=== PATIENT | female | born 1955 | race Caucasian/White ===

== ENCOUNTER 2021-02-22 05:21 | Outpatient (CLI) | payer BC, SELFPAY ==
[2021-02-22 06:21] VITALS: BP 126/87; PULSE 84; RESP 18; TEMP 36.6; O2SAT 93
[2021-02-22 06:28] VITALS: BMI 35.4
--- NOTE | 2021-02-22 06:31 | AMB.MCA ---
Patient Information COVID 19 common symptoms: positive fever(s), chills, cough, non-productive cough, dyspnea, fatigue, body aches, headache(s), nasal congestion and nausea COVID 19 other sytmptoms: negative requiring oxygen Severity: mild Treatment prior to arrival: none Other details: 65-year-old female had a positive Covid test at an outside facility. She is within the last 10 days. We reviewed risk benefits alternatives patient wishes to proceed consent signed [facility] COVID test results: No Data to Display Criteria/Plan Inclusion/Exclusion Criteria weight >/= 40kg, + direct test </= 10 days ago and symptom onset </= 10 days ago age >/= 65 and BMI >/= 35 not requiring hospitalization, not requiring oxygen (if not chronically on oxygen) and no increase oxygen requirement (if chronically on oxygen) Patient education patient/family/caregiver received/reviewed fact sheet, Emergency Use Authorization/unapproved drug status discussed with patient/family/caregiver, alternatives to this treatment discussed with patient/family/caregiver, risks and benefits of medication reviewed with patient/family/caregiver, patient/family/caregiver given opportunity for questions, which were answered and patient consents to receiving Monoclonal Antibody Treatment Related diagnosis (1) COVID-19: Plan for treatment Meets criteria for Monoclonal Antibody infusion Ordering Monoclonal Antibody infusion for today
[2021-02-22 09:04] VITALS: BP 109/74; PULSE 83; RESP 16; TEMP 36.9; O2SAT 93
== END 2021-02-22 05:22 | disposition home or self-care (01) ==
PROVIDERS: Visit Provider Nurse Practitioner Family
DX: U07.1 COVID-19 (principal)

== ENCOUNTER → 2022-05-07 15:36 | Outpatient (BNVA) | payer BC, SELFPAY | PROVIDERS: Visit Provider Family Medicine | DX: Z76.89 Persons encountering health services in other specified circumstances (principal); I10 Essential (primary) hypertension; I16.0 Hypertensive urgency; Z13.220 Encounter for screening for lipoid disorders; Z13.6 Encounter for screening for cardiovascular disorders; Z01.89 Encounter for other specified special examinations | CPT/HCPCS: 80053; 80061; 81000; 82043; 83036; 84439; 84443; 85025; 87086 ==

== ENCOUNTER 2022-05-16 15:11 | Emergency (ER) | payer BC, SELFPAY ==
[2022-05-16 15:12] VITALS: BP 158/114; PULSE 86; RESP 18; TEMP 36.6; O2SAT 95; BMI 35.4
[2022-05-16 15:18] VITALS: BP 158/103; BP 160/94; BP 167/101; PULSE 79; PULSE 84
--- NOTE | 2022-05-16 15:19 | XRR_ITS ---
PROCEDURE INFORMATION: Exam: XR Chest Exam date and time: 05/16/2022 3:47 PM Age: 67 years old Clinical indication: Dyspnea; Additional info: Dyspnea/cough TECHNIQUE: Imaging protocol: Radiologic exam of the chest. Views: 1 view. COMPARISON: No relevant prior studies available. FINDINGS: Lungs: Unremarkable. No consolidation. Pleural spaces: Unremarkable. No pleural effusion. No pneumothorax. Heart/Mediastinum: Unremarkable. No cardiomegaly. Bones/joints: Unremarkable. XR/XR chest 1V portable [id number] IMPRESSION: No acute findings.
--- NOTE | 2022-05-16 15:31 | ECG_ITS ---
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 Measurements Intervals [place] Rate: 81 P: 16 ID: [id number] QRS: -21 QRSD: 87 T: 8 QT: 352 QTc: 410 Interpretive Statements SINUS RHYTHM LOW QRS VOLTAGE IN PRECORDIAL LEADS [QRS DEFLECTION < 1.0 mV IN CHEST LEADS] MINIMAL VOLTAGE CRITERIA FOR LVH, CONSIDER NORMAL VARIANT POSSIBLE ANTERIOR MYOCARDIAL INFARCTION , PROBABLY OLD No previous ECG available for comparison Electronically Signed On 05-18-2022 23:01:03 CDT by Cecilia Augustin M.D. [email or web address]
[2022-05-16 15:48] LABS: Basophils # 0.1 10^3/uL (0.0-0.1); Basophils % 0.5 %; Eosinophils # 0.1 10^3/uL (0.0-0.8); Eosinophils % 1.3 %; Hematocrit 44.8 % (37.0-47.0); Hemoglobin 14.9 g/dL (11.5-15.3); Lymphocytes # 2.7 10^3/uL (0.8-4.8); Mean Corpuscular HGB Conc 33.3 g/dL (30.0-36.0); Mean Corpuscular Volume 87.2 fl (81-99); Mean Platelet Volume 10.5 fL (7.4-10.4); Monocytes # 1.1 10^3/uL (0.2-0.9); Monocytes % 10.9 %; Neutrophils # 6.24 10^3/uL (1.8-7.7); Neutrophils % 60.5 %; Nucleated Red Blood Cells % 0 %; Platelet Count 257 10^3/cmm (130-400); Red Blood Count 5.14 10^6/uL (4.1-5.3); Red Cell Distribution Width 13.4 % (12.1-15.1); White Blood Count 10.3 10^3/uL (4.0-10.0)
[2022-05-16] MEDS: sodium chloride 0.9% 500 ML 999 ML IV (15:50)
--- NOTE | 2022-05-16 15:51 | ED_ITS ---
HPI - Fall General: Chief Complaint: Fall Stated Complaint: DIZZY Time Seen by Provider: 05/16/22 15:17 Source: patient Mode of arrival: ambulatory History of Present Illness: 67-year-old female was recently started on oral antihypertensives. She had a near syncopal episode today when she bent over and then stood back up. She has no focal neurologic deficits no chest pain no shortness of breath. She is feeling better now. She does states she has had some heartburn recently. No chest pain associated with activity. No bowel or bladder problems. MD complaint: fall Onset (ago): minute(s) Fall from: other (Change in posture: Bent over, near syncope after standing back up) Place fall occurred: home Loss of consciousness: None Prolonged down time: no Symptoms prior to fall: lightheadedness and dizziness Associated symptoms-after fall: Denies abdominal pain, chest pain, confusion, difficulty walking, headache(s), hematuria, lightheadedness, neck pain, numbness, short of breath, vertigo or weakness Review of Systems Const: Denies: fever(s), chills, body aches, change in appetite, fatigue or malaise ENMT: Denies: throat pain, ear or mastoid pain, nasal discharge or nasal congestion Card: Denies: chest pain or lightheadedness Resp: Denies: dyspnea, productive cough or non-productive cough GI: Denies: abdominal pain, nausea or vomiting : Denies: flank pain, difficulty voiding, dysuria, urinary frequency or hematuria Musc: Denies: neck pain Skin/Breast: Denies: rash or pruritus Neuro: Denies: headache(s), difficulty walking, vertigo or confusion PFS ED PFSH: Medical History COVID-19 Family History (Updated 05/07/22 @ 14:46 by Elsa Yanez LPN) Father Stroke Hypertension Mother Hypertension Chronic kidney disease (CKD) Social History (Updated 05/07/22 @ 14:48 by Elsa Yanez LPN) Smoking and tobacco status: former smoker Alcohol intake: never Adopted: No Caregiver/support person: Yes Lives independently: No Household members: spouse and children Housing: House Marital status: Number of children: 2 Highest education level completed: Associate Degree: Occupational, Technical, Vocational Program service: No Current occupational status: employed Pets and animals: Yes History of recent travel: No Current gender identity: Female Special vicky needs: No Agree to transfusion: Yes Female Reproductive History: Spontaneous abortions: No Physical Exam Const: GENERAL APPEARANCE: cooperative and comfortable ORIENTATION/CONSCIOUSNESS: Yes awake, Yes oriented to person, Yes oriented to place and Yes oriented to time HENMT: COMMON NORMALS: normocephalic, atraumatic, hearing grossly normal bilaterally, external ears normal, EAC's normal, TM's normal bilaterally, Normal nasal mucous membranes and turbinates present, moist oral mucous membranes and oropharynx normal HEAD & SCALP: normocephalic and atraumatic NOSE: Normal nasal mucous membranes and turbinates present EXTERNAL EAR: Yes external ears normal EXTERNAL AUDITORY CANAL: EAC's normal TYMPANIC MEMBRANE: TM's normal bilaterally Eye: COMMON NORMALS: Equal, round and reactive pupils present, EOMs intact bilaterally, conjunctivae normal and no scleral icterus CONJUNCTIVA: Yes conjunctivae normal PUPIL: Yes Equal, round and reactive pupils present Neck/C-Spine: COMMON NORMALS: full ROM, no lymphadenopathy, supple and no JVD Lymph: LYMPHATIC: no lymphadenopathy noted and no lymphedema noted Resp: COMMON NORMALS: normal respiratory effort, No retractions, No use of accessory muscles and clear to auscultation bilaterally AUSCULTATION: clear to auscultation bilaterally Cardio: COMMON NORMALS: no JVD, regular rate, regular rhythm and No murmurs present (Cardio) RATE: regular rate RHYTHM: regular rhythm GI: COMMON NORMALS: Soft to palpation and No hepatosplenomegaly present AUSCULTATION: Yes normoactive bowel sounds PALPATION: Yes Soft to palpation, No Tenderness to palpation present (GI), No Guarding due to palpation present (GI) and Yes No hepatosplenomegaly present Extremity: COMMON NORMALS: normal to inspection, capillary refill normal, no clubbing, cyanosis or edema, no calf tenderness and no pedal edema Neuro: SENSORIUM/ORIENTATION: Yes oriented to person, Yes oriented to place and Yes oriented to time Skin: COMMON NORMALS: no rashes or lesions noted GENERAL SKIN EXAM: no rashes or lesions noted Course Vital Signs: Vital signs: Vital Signs Temperature 97.9 F 05/16/22 15:12 Pulse Rate 84 05/16/22 17:00 Respiratory Rate 18 05/16/22 15:12 Blood Pressure 134/79 05/16/22 17:00 Pulse Oximetry 96 05/16/22 17:00 Oxygen Delivery Me thod 05/16/22 17:00 MDM - Fall Medical Decision Making Patient initially reported that after bending over and standing up she got lightheaded dizzy and nearly passed out. She did fall. We went back to review the findings with the patient and family expressed concern about left-sided weakness. The patient never voiced that he did note that the nurses noted added left leg weakness. However on repeat exam she has no deficits whatsoever. She is fully neurologically intact. She was in her first encounter and a repeat exam. Specific testing with an NIH was 0. Patient is awake and alert behaving appropriately. Continue current medications recheck with her primary care doctor within the week to reevaluate blood pressure. Return if she has further problems. Medical Records I reviewed the patient's medical records. Lab Data I reviewed the patient's lab results. : 05/16/22 15:35 05/16/22 15:35 Radiology Impressions Chest X-Ray 05/16/22 15:19 IMPRESSION: No acute findings. Laboratory Results WBC 10.3 10^3/uL (4.0-10.0) H 05/16/22 15:35 RBC 5.14 10^6/uL (4.1-5.3) 05/16/22 15:35 Hgb 14.9 g/dL (11.5-15.3) 05/16/22 15:35 Hct 44.8 % (37.0-47.0) 05/16/22 15:35 MCV 87.2 fl (81-99) 05/16/22 15:35 MCH 29.0 pg (28.0-34.0) 05/16/22 15:35 MCHC 33.3 g/dL (30.0-36.0) 05/16/22 15:35 RDW 13.4 % (12.1-15.1) 05/16/22 15:35 Plt Count 257 10^3/cmm (130-400) 05/16/22 15:35 MPV 10.5 fL (7.4-10.4) H 05/16/22 15:35 Neut % (Auto) 60.5 % 05/16/22 15:35 Lymph % (Auto) 26.0 % 05/16/22 15:35 [place] % (Auto) 10.9 % 05/16/22 15:35 Eos % (Auto) 1.3 % 05/16/22 15:35 Baso % (Auto) 0.5 % 05/16/22 15:35 Neut # (Auto) 6.24 10^3/uL (1.8-7.7) 05/16/22 15:35 Lymph # (Auto) 2.7 10^3/uL (0.8-4.8) 05/16/22 15:35 [place] # (Auto) 1.1 10^3/uL (0.2-0.9) H 05/16/22 15:35 Eos # (Auto) 0.1 10^3/uL (0.0-0.8) 05/16/22 15:35 Baso # (Auto) 0.1 10^3/uL (0.0-0.1) 05/16/22 15:35 Nucleated RBC % (auto) 0 % 05/16/22 15:35 Nucleated RBCs # 0.0 /100WBC 05/16/22 15:35 Sodium 137 mmol/L (136-145) 05/16/22 15:35 Potassium 4.1 mmol/L (3.5-5.1) 05/16/22 15:35 Chloride 101 mmol/L (98-107) 05/16/22 15:35 Carbon Dioxide 25 mmol/L (22-29) 05/16/22 15:35 Anion Gap 15.1 (5-19) 05/16/22 15:35 BUN 18 mg/dL (8-23) 05/16/22 15:35 Creatinine 0.6 mg/dL (0.5-0.9) 05/16/22 15:35 GFR Calculation 99.1 mL/min (90-130) 05/16/22 15:35 Glucose 90 mg/dL (65-115) 05/16/22 15:35 Calculated Osmolality 285 mOsm/kg (285-295) 05/16/22 15:35 Calcium 9.9 mg/dL (8.5-10.5) 05/16/22 15:35 Total Bilirubin 0.4 mg/dL (0.15-1.2) 05/16/22 15:35 AST 17 U/L (0-32) 05/16/22 15:35 ALT 26 U/L (0-33) 05/16/22 15:35 Alkaline Phosphatase 55 U/L (35-105) 05/16/22 15:35 Troponin T Baseline 6 ng/L (0-10) 05/16/22 15:35 Total Protein 7.4 g/dL (6.6-8.7) 05/16/22 15:35 Albumin 4.4 g/dL (3.5-5.2) 05/16/22 15:35 Globulin 3.0 g/dL (1.3-4.6) 05/16/22 15:35 Urine Color Straw (Yellow) 05/16/22 17:05 Urine Appearance Clear (CLEAR) 05/16/22 17:05 Urine pH 6 (5-7) 05/16/22 17:05 Ur Specific [place] 1.010 (1.005-1.030) 05/16/22 17:05 Urine Protein Neg (Negative) 05/16/22 17:05 Urine Glucose (UA) Norm (Normal) 05/16/22 17:05 Urine Ketones Negative (Negative) 05/16/22 17:05 Urine Blood Neg (Negative) 05/16/22 17:05 Urine Nitrate Negative (Negative) 05/16/22 17:05 Urine Bilirubin Neg (Negative) 05/16/22 17:05 Urine Urobilinogen Norm mg/dL (Negative) 05/16/22 17:05 Ur Leukocyte Esterase Negative (Negative) 05/16/22 17:05 Discharge Plan Discharge Patient Disposition: Home Clinical Impression: Orthostatic hypotension Condition: Stable Prescriptions: No Action lisinopril 20 mg tablet 20 mg PO DAILY Qty: 30 2RF Rx Instructions: take one tab daily. amlodipine 10 mg tablet 10 mg PO DAILY Qty: 30 2RF Rx Instructions: take 1/2 tab daily x 7 days, then increase to one tab daily. atorvastatin 40 mg tablet 40 mg PO DAILY Qty: 90 1RF Discharge Orders: Discharge ED (Routine); Ordered 05/16/22 Ordered By: Denny Patrick Referrals: Shiraz Meza DO [Primary Care Provider] - Discharge Diet: Usual diet Discharge Activity: Increase activity as tolerated Patient Instructions: Opioid Safety, Pain Management Activity Restrictions/Additional Instructions: Continue current medications. Avoid sudden changes in position. Follow-up with your primary care doctor within the next week. Coding Level of Care Code ED Materials Specialist for Derek Grace Exam Comprehensive NIH stroke score NIHSS Level Of Consciousness - 1a: 0 Level Of Consciousness Questions - 1b: Both Correct Level Of Consciousness Commands - 1c: Both Correct Best Gaze - 2: Normal Visual Malik - 3: No Visual Loss Facial Palsy - 4: Normal Motor Arm Right - 5: No Drift Motor Arm Left - 5: No Drift Motor Leg Right - 6: No Drift Motor Leg Left - 6: No Drift Limb Ataxia - 7: Absent Sensory - 8: Normal Best Language - 9: No Aphasia Dysarthia - 10: Normal Extinction And Inattention - 11: 0 Score Total Score: 0
[2022-05-16 16:15] LABS: Alanine Aminotransferase 26 U/L (0-33); Albumin Level 4.4 g/dL (3.5-5.2); Alkaline Phosphatase 55 U/L (35-105); Anion Gap 15.1 (5-19); Aspartate Amino Transferase 17 U/L (0-32); Blood Urea Nitrogen 18 mg/dL (8-23); Calcium 9.9 mg/dL (8.5-10.5); Carbon Dioxide 25 mmol/L (22-29); Chloride 101 mmol/L (98-107); Glomerular Filtration Rate 99.1 mL/min (90-130); Glucose 90 mg/dL (65-115); Osmolality Calculated 285 mOsm/kg (285-295); Potassium 4.1 mmol/L (3.5-5.1); Sodium 137 mmol/L (136-145); Total Bilirubin 0.4 mg/dL (0.15-1.2); Total Protein 7.4 g/dL (6.6-8.7)
[2022-05-16 16:16] LABS: Troponin(5th) Baseline 6 ng/L (0-10)
[2022-05-16 16:32] VITALS: BP 152/89; PULSE 80; O2SAT 96
[2022-05-16 17:00] VITALS: BP 134/79; PULSE 84; O2SAT 96
[2022-05-16 17:10] LABS: Add Urine Microscopic? NO; Charge for UA Resulting for Rev
[2022-05-16 17:15] LABS: Bilirubin Urine Neg (Negative); Blood Urine Neg (Negative); Glucose Urine UA Norm (Normal); Ketones Urine Negative (Negative); Leukocyte Esterase Urine Negative (Negative); Nitrate Urine Negative (Negative); Protein Urine Neg (Negative); Urine Appearance Clear (CLEAR); Urine Color Straw (Yellow); Urobilinogen Urine Norm (Negative); pH Urine 6 (5-7)
[2022-05-16 17:47] VITALS: BP 139/80; PULSE 97; RESP 18; O2SAT 96
== END 2022-05-16 17:50 | disposition home or self-care (01) ==
PROVIDERS: Emergency Provider Family Medicine; PCP Family Medicine
DX: I95.1 Orthostatic hypotension (principal)
CPT/HCPCS: 71045; 80053; 81003; 84484; 85025; 93005; 96360; 96361; 99285; J7040

== ENCOUNTER 2022-05-20 15:42 | Outpatient (CLI) | payer BC, SELFPAY ==
--- NOTE | 2022-05-20 15:30 | CT_ITS ---
WS: [id number] CTA HEAD AND NECK TECHNIQUE: Contrast enhanced CTA of the head and neck with coronal and sagittal reformatted images an d maximum intensity projection (MIP) images. NASCET criteria utilized. Five-minute delayed images of the head performed CLINICAL INFORMATION: Left sided weakness COMPARISON: None. DLP: 1626.[address] scans at [facility] use at least one of these dose optimization techniques: automated e xposure control; mA and/or kV adjustment per patient size (includes targeted exams where dose is matc hed to clinical indication); or iterative reconstruction. FINDINGS: RIGHT: RIGHT common carotid artery is patent. No significant RIGHT ICA stenosis. Mild atheromatous pl aque RIGHT carotid bulb extending into the ICA. RIGHT ICA is patent to the skull base. LEFT: LEFT common carotid artery is patent. No significant LEFT ICA stenosis. LEFT ICA is patent to t he skull base. Tortuous cavernous carotid artery remains patent. Moderate stenosis LEFT ECA origin. RIGHT dominant vertebral artery. Smaller but patent LEFT vertebral artery. LEFT vertebral artery ends in PICA. Basilar artery is patent. Normal vascularity to the LEFT RAILWAY YARD ASSISTANT territory. Persistent RIGHT RAILWAY YARD ASSISTANT abdi pplies the RIGHT RAILWAY YARD ASSISTANT territory. Patent anterior communicating artery. Normal vascularity to the AIMEE territory.] Normal vascularity to the MCA territories bilaterally. No flow-limiting stenosis or aneurysm. 5 minute delayed images performed which demonstrate enhancing soft tissue nodularity within the RIGHT frontal deep white matter measuring 2.1 x 1.5 cm with smaller areas of enhancing nodularity in the i nferior LEFT and RIGHT frontal lobes and anterior RIGHT frontal lobe. Lung apices are well aerated. Normal posterior nasopharynx. Tonsillar calcifications. Normal paraphar yngeal fat. Straightening with slight reversal normal cervical lordosis. Slight anterolisthesis C3 on C4 and C4 on C5. Disc space narrowing worse at C5-C6 and C6-C7. INTRACRANIAL CTA: Basilar artery is patent. Normal vascularity to the LEFT RAILWAY YARD ASSISTANT territory. Persistent RIGHT RAILWAY YARD ASSISTANT abdi pplies the RIGHT RAILWAY YARD ASSISTANT territory. Patent anterior communicating artery. Normal vascularity to the AIMEE territory.] Normal vascularity to the MCA territories bilaterally. No flow-limiting stenosis or aneurysm. 5 minute delayed images performed which demonstrate enhancing soft tissue nodularity within the RIGHT frontal deep white matter measuring 2.1 x 1.5 cm with smaller areas of enhancing nodularity in the i nferior LEFT and RIGHT frontal lobes and anterior RIGHT frontal lobe. Lung apices are well aerated. Normal posterior nasopharynx. Tonsillar calcifications. Normal paraphar yngeal fat. Straightening with slight reversal normal cervical lordosis. Slight anterolisthesis C3 on C4 and C4 on C5. Disc space narrowing worse at C5-C6 and C6-C7. CT/CT angio headneck* [id number] IMPRESSION: 1. Diffuse edema in the RIGHT frontal subcortical white matter extending into the LEFT frontal lobe across the genu of the corpus callosum. Areas of enhancin g nodularity in this area suspicious for neoplasm and specifically glioblastoma . Recommend further evaluation with MRI without and with gadolinium enhancement and neurosurgery consultation. 2. Mild to moderate mass effect on the frontal horn. RIGHT greater than LEFT. No hydrocephalus. 3. RIGHT LEFT midline shift measuring 3 mm. 4. Basilar cisterns and 4th ventricle remain patent. 5. No significant ICA stenosis bilaterally. Both ICAs are patent to the skull base. 6. RIGHT dominant vertebral artery. 7. No evidence of intracranial flow-limiting stenosis or aneurysm. Notified Shiraz Meza DO at 05/20/2022 5:03 PM.
[2022-05-20] MEDS: iohexol 350 mg/mL 100 mL Btl IV (16:37)
== END 2022-05-20 15:43 | disposition home or self-care (01) ==
PROVIDERS: PCP Family Medicine; Visit Provider Family Medicine
DX: R53.1 Weakness (principal); G93.6 Cerebral edema
CPT/HCPCS: 70496; 70498

== ENCOUNTER 2022-05-20 15:43 | Outpatient (CLI) | payer BC, SELFPAY ==
--- NOTE | 2022-05-20 15:00 | CT_ITS ---
WS: [id number] CT HEAD TECHNIQUE: Noncontrast CT of the head obtained from the skullbase to the vertex. CLINICAL INFORMATION: LEft sided weakness COMPARISON: None. DLP: 1064.[address] scans at [facility] use at least one of these dose optimization techniques: automated e xposure control; mA and/or kV adjustment per patient size (includes targeted exams where dose is matc hed to clinical indication); or iterative reconstruction. FINDINGS: No evidence of intracranial hemorrhage. Diffuse subcortical low-attenuation change in the RIGHT front al white matter extending into the genu corpus callosum. Mass effect on the frontal horns. Edema invo lves the genu of the corpus callosum crossing midline to the LEFT frontal white matter. Suspected nod ularity involving the superior and inferior margins suspicious for neoplasm. Area of nodularity in t he RIGHT frontal white matter measures 1.9 x 1.5 cm and inferiorly measuring 1.0 CM. Mild RIGHT to LE FT midline shift measuring 3 mm. Mass effect on the RIGHT frontal horn. Normal 3rd ventricle. No hydr ocephalus. Normal posterior fossa and basilar cisterns. Mild mucosal thickening ethmoid air cells. Partial opacification RIGHT mastoid tip. LEFT mastoid air cells are well aerated. CT/CT head wo con* [id number] IMPRESSION: 1. Diffuse subcortical edema in the RIGHT frontal lobe involving the corpus ca llosum extending into the LEFT frontal lobe. Mass effect on the RIGHT frontal h orn with mild RIGHT LEFT midline shift measuring 3 mm. 2. Areas of suspected nodularity suspicious for neoplasm specifically glioblas efe. Recommend further evaluation with MRI, without and with gadolinium enhanc ement and neurosurgical consultation. 3. No hydrocephalus. Basilar cisterns and 4th ventricle remain patent. 4. No other acute findings. Notified Shiraz Meza DO at 05/20/2022 503PM.
== END 2022-05-20 15:44 | disposition home or self-care (01) ==
LOC: RAD 15:43
PROVIDERS: PCP Family Medicine; Visit Provider Family Medicine
DX: R53.1 Weakness (principal)
CPT/HCPCS: 70450

== ENCOUNTER 2022-06-04 11:41 | Outpatient (CLI) | payer BC, SELFPAY ==
--- NOTE | 2022-06-04 12:00 | MR_ITS ---
WS: [id number] MRI HEAD WITH CONTRAST TECHNIQUE: Sagittal T1, T2 axial, T2 axial FLAIR, axial susceptibility weighted imaging, axial diffus ion weighted images, and coronal T2 images were obtained. Pre and post-T1 axial and post T1 coronal i mages. ADC and FSPGR images. CLINICAL INFORMATION: Right sided brain mass COMPARISON: CT May 20, 2022 FINDINGS: Again seen is diffuse T2 signal abnormality involving the RIGHT greater than LEFT frontal subcortical white matter with involvement of the corpus callosum. This crosses the genu corpus callosum into the LEFT frontal and periventricular white matter. Adjacent signal abnormality in the periventricular wh ite matter bilaterally RIGHT greater than LEFT extending into the cash radiata. A few scattered sma ll areas of patchy enhancement. Improved compared to the prior CTA likely due to interval treatment w ith corticosteroids. Associated mass effect on the frontal horns has improved also likely due to interval treatment. A few areas of hemosiderin in the RIGHT frontal white matter corresponding to the areas of enhancement con sistent with a small amount of hemorrhage. Ventricular system is patent. No hydrocephalus. No midline shift. Normal suprasellar cistern. Normal optic chiasm and pituitary infundibulum. Normal cavernous sinuses and Meckel's cave. Normal dural venous sinus. Paranasal sinuses are well aerated. Partial opacificati on the RIGHT greater than LEFT mastoid air cells. MR/MR head wo/w con [id number] IMPRESSION: 1. Again seen is the diffuse infiltrating T2 hyperintense process involving th e RIGHT greater than LEFT frontal subcortical white matter extending across the midline involving the genu of the corpus callosum 2. Associated mass effect has improved compared to previous presumably due to interval corticosteroids. No significant ventricular mass effect today. No hydr ocephalus or midline shift. 3. A few tiny small foci of hemosiderin in the RIGHT frontal subcortical white matter. 4. Small scattered patchy foci of enhancement appear slightly improved compare d to the prior CTA likely due to interval corticosteroids. 5. T2 signal abnormality also involves the bilateral periventricular white mat ter extending into the cash radiata and RIGHT greater than LEFT. 6. Differential considerations include infiltrating glioma such as astrocytoma /glioblastoma or possibly DROP WIRE BUILDER lymphoma although less likely. Demyelinating dise ase such as PML less likely. 7. Fluid in the RIGHT mastoid air cells. Notified Shiraz Meza DO at 06/04/2022 2:27 PM.
[2022-06-04] MEDS: gadobenate dimeglumine 20 mL vial IV (12:44)
== END 2022-06-04 11:42 | disposition home or self-care (01) ==
PROVIDERS: PCP Family Medicine; Visit Provider Family Medicine
DX: D49.6 Neoplasm of unspecified behavior of brain (principal); G93.6 Cerebral edema; R53.1 Weakness
CPT/HCPCS: 70553; A9577

== ENCOUNTER 2022-07-11 00:37 | Emergency (ER) | payer MEDICARE, SELFPAY ==
--- NOTE | 2022-07-11 00:39 | CTR_ITS ---
PROCEDURE INFORMATION: Exam: CT Head Without Contrast Exam date and time: 07/11/2022 12:54 AM Age: 67 years old Clinical indication: Injury or trauma; Fall; Blunt trauma (contusions or hematomas); Prior surgery; Surgery date: 3-7 days post-operative; Surgery type: RT parietal brain bx on 07/06/2022. Patient HX: Patient fell against door and then to floor at home. C/O head and neck pain. Hematoma to left eyebrow. C collar in place. TECHNIQUE: Imaging protocol: Computed tomography of the head without contrast. Radiation optimization: All CT scans at this facility use at least one of these dose optimization techniques: automated exposure control; mA and/or kV adjustment per patient size (includes targeted exams where dose is matched to clinical indication); or iterative reconstruction. COMPARISON: MR head wo/w con [id number] 06/04/2022 12:11 PM RADIATION DOSE METRICS: Total DLP (mGy-cm): 1151.98 FINDINGS: Brain: Small volume pneumocephalus. There is moderate cerebral atrophy. There is moderate diffuse heterogeneity of the white matter attenuation, consistent with chronic white matter ischemic changes. Additional low-attenuation white matter changes in right frontal lobe which could represent vasogenic edema given the comparison brain MRI appearance. Negative for intracranial hemorrhage. Negative for mass effect on the brain. Negative for midline shift of the brain. Cerebral ventricles: No ventriculomegaly. Paranasal sinuses: Right maxillary sinus air-fluid level. Mastoid air cells: Visualized mastoid air cells are well aerated. Bones/joints: Postsurgical holli hole in lateral superior right calvarium. Soft tissues: Right lateral scalp skin juwan. CT/CT head wo con* [id number] IMPRESSION: 1. Negative for acute intracranial hemorrhage. 2. Residual postoperative pneumocephalus.
--- NOTE | 2022-07-11 00:39 | CTR_ITS ---
PROCEDURE INFORMATION: Exam: CT Cervical Spine Without Contrast Exam date and time: 07/11/2022 12:57 AM Age: 67 years old Clinical indication: Injury or trauma; Fall; Blunt trauma; Patient HX: Patient tripped and fell against door frame at home and then fell to floor. C/O head and neck pain. Hematoma to RT eyebrow. TECHNIQUE: Imaging protocol: Computed tomography of the cervical spine without contrast. Radiation optimization: All CT scans at this facility use at least one of these dose optimization techniques: automated exposure control; mA and/or kV adjustment per patient size (includes targeted exams where dose is matched to clinical indication); or iterative reconstruction. COMPARISON: CT angio headneck* [id number] 05/20/2022 4:22 PM RADIATION DOSE METRICS: Total DLP (mGy-cm): 184.37 FINDINGS: Bones/joints: Severe disc disease at C5-C6 and C6-C7. Vertebral endplate osteophytes. Unremarkable cervical spine alignment. There is very mild degenerative anterolisthesis of C4-C5. No traumatic vertebral subluxation or dislocation. No acute fractures. Mastoid air cells: Partially opacified right mastoid air cells. Clear left mastoid air cells. Lungs: Lung apices are normal. Soft tissues: Unremarkable. CT/CT cervical spin wo con* [id number] IMPRESSION: Negative for acute cervical spine injury.
[2022-07-11 00:42] VITALS: BP 181/95; PULSE 96; RESP 17; TEMP 36.6; O2SAT 96; BMI 35.4
--- NOTE | 2022-07-11 01:10 | W.ED.FALL ---
HPI - Fall General: Chief Complaint: Fall Stated Complaint: FALL Time Seen by Provider: 07/11/22 00:39 Source: patient and EMS Mode of arrival: EMS Limitations: no limitations History of Present Illness: 67-year-old female states that she is walking with a walker tonight at midnight states she fell over and hit her head on the floor. States she has slight headache she rates a 2 out of 10 along with some neck pain does have an abrasion to her left forehead she had a brain biopsy done this Wednesday to the right parietal region for a possible tumor. She is not on any blood thinners. Associated symptoms-after fall: Reports headache(s) and neck pain; Denies abdominal pain or chest pain Review of Systems Const: Denies: fever(s), chills, body aches or change in appetite Eyes: Denies: blurry vision or eye discomfort ENMT: Denies: throat pain or dental pain Card: Denies: chest pain Resp: Denies: dyspnea GI: Denies: abdominal pain, nausea, vomiting or diarrhea : Denies: dysuria Musc: Reports: neck pain Skin/Breast: Denies: rash Neuro: Reports: headache(s) Psych: Denies: depression Dean/Lymph: Denies: easy bruising All/Imm: Denies: urticaria PFSH ED PFSH: Medical History COVID-19 Family History Father Stroke Hypertension Mother Hypertension Chronic kidney disease (CKD) Social History Smoking and tobacco status: never smoked Alcohol intake: never Adopted: No Caregiver/support person: Yes Lives independently: No Household members: spouse and children Housing: House Marital status: Number of children: 2 Highest education level completed: Associate Degree: Occupational, Technical, Vocational Program service: No Current occupational status: employed Pets and animals: Yes History of recent travel: No Current gender identity: Female Special vicky needs: No Agree to transfusion: Yes Female Reproductive History: Spontaneous abortions: No Physical Exam Const: COMMON NORMALS: no acute distress, patient oriented x3 and healthy appearing HENMT: COMMON NORMALS: head/scalp not atraumatic (contusion to left forehead) HEAD & SCALP: not atraumatic (contusion to left forehead) Eye: COMMON NORMALS: Equal, round and reactive pupils present and EOMs intact bilaterally PUPIL: Yes Equal, round and reactive pupils present Neck/C-Spine: COMMON NORMALS: full ROM and supple Chest: COMMONS NORMALS: normal inspection of the chest and normal palpation of entire chest wall Resp: COMMON NORMALS: normal respiratory effort, No retractions, No use of accessory muscles and clear to auscultation bilaterally AUSCULTATION: clear to auscultation bilaterally Cardio: COMMON NORMALS: regular rate, regular rhythm and No murmurs present (Cardio) RATE: regular rate RHYTHM: regular rhythm GI: COMMON NORMALS: Normal to inspection, nondistended, normoactive bowel sounds present, Soft to palpation, non-tender and no masses PALPATION: Yes Soft to palpation Extremity: COMMON NORMALS: normal to inspection and full ROM Neuro: COMMON NORMALS: patient oriented x3, moves all extremities and no focal motor deficits Psych: COMMON NORMALS: mental status grossly normal, Normal thought process present and cooperative THOUGHT PROCESS: Normal thought process present Skin: COMMON NORMALS: no rashes or lesions noted and no wounds GENERAL SKIN EXAM: no rashes or lesions noted Course Vital Signs: Vital signs: Vital Signs Temperature 97.9 F 07/11/22 00:42 Pulse Rate 96 07/11/22 00:42 Respiratory Rate 17 07/11/22 00:42 Blood Pressure 181/95 07/11/22 00:42 Pulse Oximetry 96 07/11/22 00:42 Oxygen Delivery Me thod 07/11/22 00:42 MDM - Fall Medical Decision Making Patient presents here with a closed head injury from a fall head CT shows no acute abnormality she is well-appearing here her blood pressure here is improved as well she is to monitor her blood pressure at home she is to follow-up with PCP and return if worsening she understands agrees to plan. Lab Data Radiology Impressions Cervical Spine CT 07/11/22 00:39 IMPRESSION: Negative for acute cervical spine injury. Head CT 07/11/22 00:39 IMPRESSION: 1. Negative for acute intracranial hemorrhage. 2. Residual postoperative pneumocephalus. Discharge Plan Discharge Patient Disposition: Home Clinical Impression: CHI (closed head injury), Hypertension Condition: Stable Prescriptions: No Action dexamethasone 4 mg tablet 4 mg PO BID Qty: 60 0RF amlodipine 10 mg tablet 5 mg PO DAILY Qty: 30 2RF atorvastatin 40 mg tablet 40 mg PO DAILY Qty: 90 1RF Discharge Orders: Discharge ED (Routine); Ordered 07/11/22 Ordered By: Omero Angelo Referrals: Shiraz eMza DO [Primary Care Provider] - Discharge Diet: Advance as tolerated Discharge Activity: Resume usual activity Patient Instructions: Head Injury (ED) Coding Level of Care Code ED Signals Collection Technician for Valg Fwd Exam Comprehensive
[2022-07-11] MEDS: labetalol 5 mg/mL SDV 20mL 10 MG IVP (01:17)
[2022-07-11 01:48] VITALS: BP 161/96; PULSE 84; RESP 16; O2SAT 96
[2022-07-11 02:08] VITALS: BP 161/96; PULSE 84; RESP 16; O2SAT 96
== END 2022-07-11 01:53 | disposition home or self-care (01) ==
PROVIDERS: Emergency Provider Emergency Medicine; PCP Family Medicine
DX: S09.8XXA Other specified injuries of head, initial encounter (principal); I10 Essential (primary) hypertension; W18.39XA Other fall on same level, initial encounter
CPT/HCPCS: 70450; 72125; 96374; 99284; J3490

== ENCOUNTER 2022-08-04 15:52 | Oncology outpatient (recurring) (ONCR) | payer MEDICARE, SELFPAY | END 2022-08-25 23:59 | disposition home or self-care (01) | PROVIDERS: PCP Family Medicine; Visit Provider Radiology Radiation Oncology | DX: C71.9 Malignant neoplasm of brain, unspecified (principal) | CPT/HCPCS: 99204 ==

== ENCOUNTER 2022-08-13 06:00 | Outpatient (RCR) | payer MEDICARE, SELFPAY | END 2022-08-25 23:59 | disposition home or self-care (01) | LOC: SPT 06:00 | PROVIDERS: PCP Family Medicine; Visit Provider Family Medicine | DX: M54.9 Dorsalgia, unspecified (principal); G89.29 Other chronic pain; R29.6 Repeated falls; R53.1 Weakness | CPT/HCPCS: 97110; 97162 ==

== ENCOUNTER 2022-08-26 06:00 | Outpatient (RCR) | payer MEDICARE, SELFPAY | END 2022-09-22 23:59 | disposition home or self-care (01) | LOC: SPT 06:00 | PROVIDERS: PCP Family Medicine; Visit Provider Family Medicine | DX: M54.9 Dorsalgia, unspecified (principal); G89.29 Other chronic pain; R29.6 Repeated falls; R53.1 Weakness | CPT/HCPCS: 97110 ==

== ENCOUNTER → 2022-11-02 09:03 | Outpatient (BNVA) | payer MEDICARE, SELFPAY | PROVIDERS: PCP Family Medicine; Visit Provider Family Medicine | DX: C71.9 Malignant neoplasm of brain, unspecified (principal); E78.2 Mixed hyperlipidemia; I10 Essential (primary) hypertension; U07.1 COVID-19; R73.9 Hyperglycemia, unspecified | CPT/HCPCS: 80053; 80061; 83036; 83735; 84443; 85025 ==

== ENCOUNTER 2024-03-15 12:06 | Outpatient (CLI) | payer MEDICARE, MEDICAID, SELFPAY ==
[2024-03-15 13:21] LABS: Alanine Aminotransferase 34 U/L (0-33); Albumin Level 3.7 g/dL (3.5-5.2); Alkaline Phosphatase 81 U/L (35-105); Blood Urea Nitrogen 18 mg/dL (8-23); Calcium 9.3 mg/dL (8.5-10.5); Carbon Dioxide 24 mmol/L (22-29); Chloride 101 mmol/L (98-107); Globulin 2.7 g/dL (1.3-4.6); Glomerular Filtration Rate 61.9 mL/min (90-130); Glucose 111 mg/dL (65-115); Osmolality Calculated 289 mOsm/kg (285-295); Sodium 138 mmol/L (136-145); Total Bilirubin 0.3 mg/dL (0.15-1.2); Total Protein 6.4 g/dL (6.6-8.7)
[2024-03-15 13:28] LABS: Anion Gap 16.7 (5-19); Aspartate Amino Transferase 25 U/L (0-32); Potassium 3.7 mmol/L (3.5-5.1)
== END 2024-03-15 12:07 | disposition home or self-care (01) ==
LOC: LAB 12:12
PROVIDERS: PCP Family Medicine; Visit Provider Internal Medicine Medical Oncology
DX: C83.39 Diffuse large B-cell lymphoma, extranodal and solid organ sites (principal); E87.6 Hypokalemia; R74.01 Elevation of levels of liver transaminase levels; C85.19 Unspecified B-cell lymphoma, extranodal and solid organ sites
CPT/HCPCS: 36415; 80053

== ENCOUNTER 2024-07-13 13:05 | Outpatient (CLI) | payer MEDICARE, MEDICAID, SELFPAY ==
--- NOTE | 2024-07-13 13:11 | XR_ITS ---
WS: [id number] Right knee, 3 views, 07/13/2024 Clinical Data: Right knee pain Comparison: Right knee, 06/19/2019 Findings: No fractures or dislocations are seen. There is minimal medial joint compartment narrowing. Right pat syed shows no irregularity. There are no soft tissue abnormalities. XR/XR knee RT 3V* [id number] Impression: Minimal medial joint compartment narrowing. Kellgren-Parth Classification: grade 1 (doubtful): doubtful joint space narr owing and possible osteophytic lipping
--- NOTE | 2024-07-13 13:11 | XR_ITS ---
WS: [email or web address] Right hip, AP and frog-leg views, 07/13/2024 Clinical Data: right hip pain, limping Comparison: None. Findings: No fractures or dislocations are seen. The right hip shows no erosion, sclerosis, narrowing or fragme ntation of the right femoral head. There is a small acetabular lip.. The soft tissues are not remarka ble. The adjacent pelvis is normal. 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 Tonnis classification: grade 1: sclerosis of femoral head and acetabulum or sli ght joint space narrowing or slight lipping at joint margins
--- NOTE | 2024-07-13 13:11 | XRR_ITS ---
PROCEDURE INFORMATION: Exam: XR Left Knee Exam date and time: 07/13/2024 1:33 PM Age: 69 years old Clinical indication: Pain; Knee; Left; Additional info: Left knee pain TECHNIQUE: Imaging protocol: Radiologic exam of the left knee. Views: 3 views. COMPARISON: No relevant prior studies available. FINDINGS: Bones/joints: No fracture. No dislocation. No joint space narrowing. No joint effusion. Soft tissues: No acute soft tissue abnormality. XR/XR knee LT 3V* [id number] IMPRESSION: No acute osseous abnormality.
== END 2024-07-13 13:06 | disposition home or self-care (01) ==
LOC: RAD 13:07
PROVIDERS: PCP Family Medicine; Visit Provider Family Medicine
DX: S73.191A Other sprain of right hip, initial encounter (principal); X58.XXXA Exposure to other specified factors, initial encounter; M25.561 Pain in right knee; M25.562 Pain in left knee
CPT/HCPCS: 73502; 73562

== ENCOUNTER 2024-07-14 06:56 | Outpatient (CLI) | payer MEDICARE, MEDICAID, SELFPAY ==
[2024-07-14 07:39] LABS: Chol HDL Ratio 5.16 mg/dL (0.0-4.40); Cholesterol 263 mg/dL (0-200); HDL Cholesterol 51 mg/dL (60-100); LDL Cholesterol Calculated 179 mg/dL (50-129); LDL HDL Ratio 3.51 RATIO (0.00-3.22); Thyroid Stimulating Hormone 4.56 uIU/mL (0.27-4.20); Triglycerides 167 mg/dL (0-150)
== END 2024-07-14 06:57 | disposition home or self-care (01) ==
LOC: LAB 06:57
PROVIDERS: PCP Family Medicine; Visit Provider Family Medicine
DX: I10 Essential (primary) hypertension (principal); E78.00 Pure hypercholesterolemia, unspecified
CPT/HCPCS: 36415; 80061; 84443

== ENCOUNTER 2024-07-31 13:46 | Outpatient (RCR) | payer MEDICARE, MEDICAID, SELFPAY | END 2024-08-25 23:59 | disposition home or self-care (01) | LOC: SPT 13:46 | PROVIDERS: Visit Provider Family Medicine | DX: M25.561 Pain in right knee (principal); M25.562 Pain in left knee; M25.551 Pain in right hip | CPT/HCPCS: 97110; 97161 ==

== ENCOUNTER 2024-08-30 06:00 | Outpatient (RCR) | payer MEDICARE, MEDICAID, SELFPAY | END 2024-09-22 23:59 | disposition home or self-care (01) | LOC: SPT 06:00 | PROVIDERS: Visit Provider Family Medicine | DX: M25.551 Pain in right hip (principal); M25.562 Pain in left knee; M25.561 Pain in right knee | CPT/HCPCS: 97110; 97112; 97164 ==

== ENCOUNTER 2024-09-23 06:30 | Outpatient (RCR) | payer MEDICARE, MEDICAID, SELFPAY | END 2024-10-09 10:20 | disposition home or self-care (01) | LOC: SPT 06:30 | PROVIDERS: PCP Family Medicine; Visit Provider Family Medicine | DX: M25.551 Pain in right hip (principal); M25.562 Pain in left knee; M25.561 Pain in right knee | CPT/HCPCS: 97110; 97164 ==

== ENCOUNTER → 2024-10-30 09:42 | Outpatient (BNVA) | payer MEDICARE, MEDICAID, SELFPAY | PROVIDERS: PCP Family Medicine; Visit Provider Orthopaedic Surgery | DX: M16.11 Unilateral primary osteoarthritis, right hip (principal); M85.661 Other cyst of bone, right lower leg | CPT/HCPCS: 73502; 99204 ==

== ENCOUNTER → 2024-11-14 09:04 | Outpatient (BNVA) | payer MEDICARE, MEDICAID, SELFPAY | PROVIDERS: PCP Family Medicine; Visit Provider Orthopaedic Surgery | DX: Z01.818 Encounter for other preprocedural examination (principal); M16.11 Unilateral primary osteoarthritis, right hip; R30.0 Dysuria; C85.10 Unspecified B-cell lymphoma, unspecified site; D72.9 Disorder of white blood cells, unspecified; E78.00 Pure hypercholesterolemia, unspecified; I10 Essential (primary) hypertension; K21.9 Gastro-esophageal reflux disease without esophagitis; R79.89 Other specified abnormal findings of blood chemistry; R60.0 Localized edema | CPT/HCPCS: 36415; 80053; 81001; 84439; 84443; 84481; 85025; 86140; 87086; 99213 ==

== ENCOUNTER 2024-11-29 10:35 | Observation (INO) | payer MEDICARE, MEDICAID, SELFPAY ==
[2024-11-29] VITALS (22 sets, daily range): BP systolic 93–162; BP diastolic 59–90; PULSE 71–98; RESP 15–18; TEMP 36.1–36.5; O2SAT 93–100; BMI 35.4
--- NOTE | 2024-11-29 05:54 | ECG_ITS ---
[facility] Test Date: 2024-11-29 Pat Name: Airam Askew Department: Room: Gender: Female Paginator: : 1955 Requested By: Abdiel Reis Order Number: [id number] Chyna MD: Nohemy Morrison M.D. Measurements Intervals [place] Rate: 80 P: 15 [place]: 201 QRS: -23 QRSD: 92 T: 0 QT: 390 QTc: 451 Interpretive Statements SINUS RHYTHM INCOMPLETE RIGHT BUNDLE BRANCH BLOCK [90+ ms QRS DURATION, TERMINAL R IN V1/V2, 40+ ms S IN I/aVL/V4/V5/V6] MINIMAL VOLTAGE CRITERIA FOR LVH, CONSIDER NORMAL VARIANT [MEETS CRITERIA IN ONE OF: R(aVL), S(V1), R(V5), R(V5/V6)+S(V1)] POSSIBLE ANTERIOR MYOCARDIAL INFARCTION , PROBABLY OLD [30 ms Q WAVE IN V3/V4, OR R < 0.2 mV IN V4] INFERIOR MYOCARDIAL INFARCTION , PROBABLY OLD [40+ ms Q WAVE AND/OR ST/T ABNORMALITY IN II/aVF].WARNING: DATA QUALITY MAY AFFECT INTERPRETATION Compared to ECG 05/16/2022 15:31:36 Incomplete right bundle-branch block now present.Myocardial infarct finding still present Electronically Signed On 11-29-2024 23:36:45 CDT by Nohemy Morrison M.D. [email or web address]
--- NOTE | 2024-11-29 06:16 | ANES.PREANE2 ---
Pre-Anesthetic Assessment Height/Weight: Height 5 ft 3 in Weight 200 lb Temp Pulse Resp BP Pulse Ox O2 Del Method 97.2 F L 86 18 162/89 96 Room Air 11/29/24 06:04 11/29/24 06:04 11/29/24 06:04 11/29/24 06:04 11/29/24 06:04 11/29/24 06:04 Preop Diagnosis: Hip arthritis Operation Date: 11/29/24 07:00 Proposed Procedures p RIGHT Total Hip Arthroplasty(Right) - Jose Will MD Was Beta Asif taken within 24 hours: N/A Was Clonidine taken within 24 hours: N/A Last intake: Intake Last Liquid Date 11/28/24 Last Liquid Time 23:00 Last Solid Date 11/28/24 Last Solid Time 19:00 Social No alcohol and No tobacco Exam alert, oriented x 3, clear to auscultation bilaterally and regular rate & rhythm Airway Submandibular: within normal limits Cervical ROM: within normal limits Mallampati: Class II Dentition: full Anesthetic Plan ASA status: 3 Anesthesia: General Other: No prior issues with anesthesia, recent prolapse surgery at [place] in July without issues Mild leukocytosis noted but this appears to be a chronic issue. Patient has B-cell lymphoma that is followed by oncology in [place] Denies any current or recent URI, cough or SOB History of GERD, controlled with Pepcid Hypertension, on amlodipine and chlorthalidone. BP 162/89 today Recent labs reviewed and acceptable for procedure this morning EKG showing sinus rhythm with possible LVH and old anterior VA Plan for general anesthesia Medications/Allergies Home Medications ?Medication ?Instructions ?Recorded ?Confirmed ?Last Taken ?Type Knee high compression stockings #2 ea 07/30/22 11/14/24 Unknown Rx ascorbic acid (vitamin C) 100 mg 100 mg PO DAILY 03/23/23 11/28/24 11/27/24 History tablet (Vitamin C) cholecalciferol (vitamin D3) 10 10 mcg PO DAILY 03/23/23 11/28/24 11/27/24 History mcg (400 unit) capsule multivitamin 1 tab PO DAILY 03/23/23 11/28/24 11/27/24 History omega-3 fatty acids 500 mg capsule 500 mg PO DAILY 03/23/23 11/29/24 11/23/24 History zinc acetate 50 mg (zinc) capsule 50 mg PO DAILY 03/23/23 11/28/24 11/27/24 History fluoride (sodium) 1.1 % dental 1 applic dental DAILY 06/16/23 11/28/24 11/28/24 History paste (Clinpro 5000) [id number] 3.5 1 drp ophthalmic (eye) Q12H 06/16/23 11/28/24 11/29/24 History mg/mL-10,000 unit/mL-0.1% eye drops amlodipine 10 mg tablet 10 mg PO DAILY #90 tabs 09/20/24 11/28/24 11/29/24 Rx chlorthalidone 25 mg tablet 25 mg PO DAILY #90 tabs 11/14/24 11/28/24 11/29/24 Rx omeprazole 20 mg capsule,delayed 20 mg PO QAM #90 caps 11/14/24 11/28/24 11/29/24 Rx release Allergies Allergy/AdvReac Type Severity Reaction Status Date / Time adhesive Allergy rash, Verified 11/14/24 14:21 blisters PFSH Anesthesia Medical History Essential hypertension Abnormal TSH Knee pain, bilateral Right hip pain B-cell lymphoma R vitreous with 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 (brain findings)--not glioma; has had high dose steroid, then Temodar, then MTX systemic and then intravitreal--goes to [place] Chronic GERD without esophagitis Hypercholesterolemia Surgical History Hx of hysterectomy 08/19 at [facility]; had hyst w/ BSO, adhesionlysis; colpopexy sacrospinus; path benign Hx of colonoscopy with polypectomy 10/16 at [place]--polyps; to repeat 3 yrs Hx of biopsy brain; done at [facility] 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[facility]; for Fuch's dystrophy Hx of vitrectomy OD Hx of bilateral cataract extraction Family History Father Stroke Hypertension Mother Hypertension Chronic kidney disease (CKD) Social History Smoking and tobacco/nicotine status: former use of tobacco/nicotine Quit status (tobacco/nicotine): has quit using Year quit tobacco: 1990S Alcohol intake: never Substance/Drug Use: never Adopted: No Caregiver/support person: Yes Lives independently: No Household members: spouse and children Housing: House Marital status: Number of children: 2 Highest education level completed: High School Graduate 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
[2024-11-29] MEDS: sodium chloride 0.9% 1,000 ML 30 ML IV (06:37)
--- NOTE | 2024-11-29 06:59 | W.PM.OPSUD ---
Surgery/Procedure H&P Update DATE OF PROCEDURE: November 29, 2024 DATE H&P PERFORMED: 11/14/24 H&P UPDATE INFORMATION: I have reviewed H&P completed within last 30 days, I have examined patient prior to procedure, No changes to prior documentation and Risks and benefits of the procedure reviewed PREOP DIAGNOSIS: Hip arthritis PLANNED PROCEDURE: Operation Date: 11/29/24 07:00 Proposed Procedures p RIGHT Total Hip Arthroplasty(Right) - Jose Will MD
[2024-11-29] MEDS: ceFAZolin 2,000 mg SDV 2000 MG IVP ×3 (07:01→22:47)
[2024-11-29] MEDS: tranexamic acid 1,000 mg/10mL SDV 1000 MG IV (07:20)
--- NOTE | 2024-11-29 09:01 | XR_ITS ---
WS: [id number] XR hip RT 1V wo/w pel [id number] REASON FOR EXAM: Total hip arthroplasty FINDINGS: Total right hip arthroplasty. Components of the arthroplasty are intact and in proper position and alignment. No focal bony abnormality. XR/XR hip RT 1V wo/w pel [id number] IMPRESSION: Total right hip arthroplasty without abnormality.
[2024-11-29] MEDS: fentaNYL 50 mcg/mL INJ 2mL IVP ×2 (09:24→09:34)
--- NOTE | 2024-11-29 09:27 | P.OP_ITS ---
Operative Report Date of procedure: November 29, 2024 Surgeon: Jose Will MD Procedure: Preoperative diagnosis: End-stage degenerative joint disease of the right hip Postoperative diagnosis: Same Procedure: Right total hip arthroplasty Surgeon: Jose Dewitt MD Starch Mangle Tender: MARY Márquez's assistance was necessary with this procedure for positioning the patient as well as assistance during the procedure, manipulating the lower extremity as well as holding instruments. Their assistance was also necessary for wound closure and transported the patient back to the PACU Anesthesia: General EBL: 1100 cc Complications: None Indications: Airam is a 69-year-old white female presented to the orthopedic clinics with debilitating right hip pain. Is been referred in by her primary care for evaluation of osteoarthritic hip. After review of x-rays and clinical exam was felt patient was at end-stage degenerative joint disease of the right hip. She had failed all conservative measures. Therefore at this time she was offered a total hip arthroplasty. All risk benefits treatment alternatives were discussed. Patient was agreeable to this at this time. Procedure: After obtaining the consent patient was taken to the operating room and placed the operative table supine position general anesthetic administered. 1 skin anesthesia was achieved urinary catheter was placed. Patient was then placed in lateral decubitus position with right hip up. Pegboard was used to hold her in place. Appropriate padding was applied to all pressure spots. Right leg and hip were prepped and draped usual fashion. After surgical timeout hip was flexed at 90 degrees and a minimally invasive lateral incision was made over the proximal portion of the greater trochanter of the right hip. Sharp dissection taken on down to subcutaneous tissues electrocautery was for hemostasis. Dissection was taken down to the superior portion of the greater trochanter. Identify where the hip joint was at. Incision was then extended both proximally distally by 2 more centimeters to enlarge enough to visualize all structures. Hip was slowly internally rotated. Electrocautery is used to dissect all soft tissues off the posterior aspect of the greater trochanter all the way down the femoral neck. Piriformis muscle was removed from its insertion. Capsule was opened in a T-type fashion. Then with internal rotation of the hip the hip was dislocated. At this point proximal femur was templated for femoral neck cut. Femoral neck cut was done without any difficulties with a sagittal saw. Head was removed en bloc. Appropriate retractors were placed to hold the femur out of position while acetabulum was prepared. Using long-handle 10 blade knife and pickups labrum was debrided away from the edge of the acetabulum as well as all other soft tissues. Starting at the size 49 reamer and going up by 2 mm acetabular was reamed and appropriate vertical tilt and anteversion. Reaming was done up to a size 51 reamer before good bleeding bone was I discovered circumferentially on the cup and all soft tissues had been removed. Cup was washed copious amounts of sterile irrigation. Trial cup was placed and found to fit quite well. There therefore a size 52 cup was then placed and impacted with appropriate anteversion and vertical tilt. Good fixation was achieved. Subsequently a 10 degree high wall cup was placed and positioned and then locked in place into the acetabulum. At this point a proximal retractor for the femur was placed under the proximal portion to raise that up in the wound to be able to place the femoral component. Leg had been rotated to 90 degrees internal rotation. Box cut osteotome was used to make entry point. Then hand reaming then broaching up to a size 5 broach was done. This was done by 1 mm increments starting from 0 and going to 5. Appropriate anteversion was placed on these. Subsequent knee a permanent size 5 femoral stem was placed and impacted. Trial head a standard head and neck was placed on this the hip was reduced but range of motion found to be stable. Leg lengths appear to be slightly longer on the right therefore a -5 neck was selected after trialing that. Permanent 36 mm ceramic head with -5 neck was placed on the [place] taper of the femoral component and impacted. Hip was reduced and put the range of motion found to be stable. Multiple washes of sterile irrigation was done throughout this process. He was put on a knee bump to abduct it. Capsule was repaired with #1 Vicryl [id number] sutures. Piriformis replaced back to the greater trochanter with #5 Ethibond through bone tunnels. Areas washed again. Deep retractors removed. Fascia and muscle were reapproximated with 0 Vicryl [id number] sutures. Subcutaneous tissues were reapproximated with further sutures. Skin closed with skin juwan. Wounds are clean and dry dressed with a occlusive dressing patient was placed in abduction pillow and awakened transferred recovery in stable condition in her hospital bed.
[2024-11-29] MEDS: HYDROmorphone 1 mg/mL INJ 1ml 0.5 MG IVP ×2 (09:40→10:30)
[2024-11-29] MEDS: ketorolac 30 mg/mL INJ 15 MG IVP ×2 (10:24→21:26)
--- NOTE | 2024-11-29 10:29 | ANES.PROC ---
Anesthesia Procedures Procedure/Date: 11/29/24 Nerve Block ^: Nerve Block 1: Main Anesthesia: general anesthesia Time Out Performed: Yes Consent: from patient and other (Discussed procedure with patient's daughter as well) Nerve block location: other (DAMARI block) Anesthesia monitors applied: pulse oximetry, EKG, BP cuff and oxygen Nerve block position: supine Anesthetic Used: ropivicaine 0.5% Amount of anesthesia used (mL): 30 Ultrasound used to: recognize landmarks Nerve Stimulator Used?: No Interscalene/Femoral BLK: other needle (pjunk 4inch) Injection: neg aspiration of heme Patient Tolerated Procedure: well Complications: none
--- NOTE | 2024-11-29 10:36 | PM.CONSULT ---
Providers/Reason For Consult Consulting Physician/Specialty*: Hospitalist Reason for Consult*: Medical management Attending Physician: Jose Will MD Primary Care Provider: Sarah Webster MD History of Present Illness History of Present Illness Airam Askew is a 69 year old female with a history of osteoarthritis and hypertension presenting post right hip replacement surgery. The patient reports that her surgical site hurts and she also experiences pain in her right calf. She denies any fever, chills, respiratory symptoms, or gastrointestinal complaints. She uses a cane for ambulation and lives with her . The calf pain is localized to the lateral aspect and may be related to intraoperative positioning. Review of Systems Const: Denies: fever(s), chills, body aches or malaise ENMT: Denies: throat pain Card: Denies: chest pain, edema, pre-syncope or dyspnea on exertion Resp: Denies: dyspnea, productive cough, change in phlegm color or hemoptysis GI: Denies: abdominal pain, nausea, vomiting, diarrhea, constipation, hematochezia or melena : Denies: flank pain, urinary frequency or hematuria Musc: Reports: extremity pain (R tibia/calf pain) and other (R hip pain); Denies: back pain, joint swelling or joint redness Skin/Breast: Denies: rash or new lesions Neuro: Denies: headache(s) or confusion Medications/Allergies Home Medications ?Medication ?Instructions ?Recorded ?Confirmed ?Last Taken ?Type Knee high compression stockings #2 ea 07/30/22 11/29/24 Unknown Rx ascorbic acid (vitamin C) 100 mg 100 mg PO DAILY 03/23/23 11/28/24 11/27/24 History tablet (Vitamin C) cholecalciferol (vitamin D3) 10 10 mcg PO DAILY 03/23/23 11/28/24 11/27/24 History mcg (400 unit) capsule multivitamin 1 tab PO DAILY 03/23/23 11/28/24 11/27/24 History omega-3 fatty acids 500 mg capsule 500 mg PO DAILY 03/23/23 11/29/24 11/23/24 History zinc acetate 50 mg (zinc) capsule 50 mg PO DAILY 03/23/23 11/28/24 11/27/24 History fluoride (sodium) 1.1 % dental 1 applic dental DAILY 06/16/23 11/28/24 11/28/24 History paste (Clinpro 5000) [id number] 3.5 1 drp ophthalmic (eye) Q12H 06/16/23 11/28/24 11/29/24 History mg/mL-10,000 unit/mL-0.1% eye drops amlodipine 10 mg tablet 10 mg PO DAILY #90 tabs 09/20/24 11/28/24 11/29/24 Rx chlorthalidone 25 mg tablet 25 mg PO DAILY #90 tabs 11/14/24 11/28/24 11/29/24 Rx omeprazole 20 mg capsule,delayed 20 mg PO QAM #90 caps 11/14/24 11/28/24 11/29/24 Rx release Allergies Allergy/AdvReac Type Severity Reaction Status Date / Time adhesive Allergy rash, Verified 11/14/24 14:21 blisters Current Medications Generic Name Dose Route Start Last Admin Trade Name Freq PRN Reason Stop Dose Admin Hydromorphone HCl 0.5 mg 11/29/24 09:27 11/29/24 10:30 Hydromorphone 1 Mg/Ml Inj 1ml IVP 11/30/24 09:27 0.5 mg Q10M PRN Administration Pain level 7-10 PACU Phase I Sodium Chloride 1,000 mls @ 30 mls/hr 11/29/24 06:00 11/29/24 08:53 Sodium Chloride 0.9% IV 11/30/24 05:59 Infused .Q24H CLAIR Infusion Ketorolac Tromethamine 15 mg 11/29/24 09:01 11/29/24 10:24 Ketorolac 30 Mg/Ml Inj IVP 15 mg Q6H PRN Administration MODERATE TO SEVERE PAIN PFSH Acute PFSH: Medical History Essential hypertension Abnormal TSH Knee pain, bilateral Right hip pain B-cell lymphoma R vitreous with 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OU; for Fuch's dystrophy Hx of vitrectomy OD Hx of bilateral cataract extraction Family History Father Stroke Hypertension Mother Hypertension Chronic kidney disease (CKD) Social History Smoking and tobacco/nicotine status: former use of tobacco/nicotine Quit status (tobacco/nicotine): has quit using Year quit tobacco: Alcohol intake: never Substance/Drug Use: never Adopted: No Caregiver/support person: Yes Lives independently: No Household members: spouse and children Housing: House Marital status: Number of children: 2 Highest education level completed: High School Graduate 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 service: No Current occupational status: retired Pets and animals: Yes Do you think of yourself as: Straight/Heterosexual Current gender identity: Female Special vicky needs: No Agree to transfusion: Yes Female Reproductive History: Spontaneous abortions: No Vitals/I&O/Wt Last Vital Signs Temp 97.1 F L 11/29/24 10:15 Pulse 74 11/29/24 10:15 Resp 18 11/29/24 10:30 BP 126/67 11/29/24 10:15 Pulse Ox 96 11/29/24 10:30 O2 Del Method Room Air 11/29/24 10:15 11/28/24 11/29/24 11/29/24 22:59 06:59 14:59 Intake Total 1000 / 1000 Output Total 1800 / 1800 Balance -800 / -800 Weight last 48 hrs Weight 90.718 kg Physical Exam Const: COMMON NORMALS: patient oriented x3 and alert GENERAL APPEARANCE: cooperative ORIENTATION/CONSCIOUSNESS: Yes awake HENMT: COMMON NORMALS: oropharynx normal Neck/C-Spine: COMMON NORMALS: no JVD Resp: COMMON NORMALS: normal respiratory effort and clear to auscultation bilaterally AUSCULTATION: clear to auscultation bilaterally Cardio: COMMON NORMALS: no JVD, regular rhythm, S1 normal heart sound present, S2 normal heart sound present and No murmurs present (Cardio) RHYTHM: regular rhythm HEART SOUNDS: S1 normal heart sound present and S2 normal heart sound present GI: COMMON NORMALS: Normal to inspection, nondistended, normoactive bowel sounds present, Soft to palpation and non-tender PALPATION: Yes Soft to palpation Extremity: COMMON NORMALS: no joint enlargement and no pedal edema NARRATIVE EXTREMITY EXAM: Postoperative dressing right hip. Neuro: COMMON NORMALS: patient oriented x3 and moves all extremities SENSORIUM/ORIENTATION: Yes alert Skin: COMMON NORMALS: no rashes or lesions noted GENERAL SKIN EXAM: no rashes or lesions noted Urinary Catheter Management: Aburto: Cath Placed During This Visit: yes Urinary Catheter Date of Insertion: 11/29/24 Urinary Catheter Time of Insertion: 07:11 A&P Assessment and plan (1) S/P total hip arthroplasty: Status post total hip arthroplasty due to underlying osteoarthritis, she is awake and alert following surgery in PACU. Denies shortness of breath, chest pain or pressure. EBL reported 1100 mL. Would follow-up hemoglobin in the morning. She is receiving IV fluid, currently as she is waking up, when she resumes her oral intake, will discontinue IV fluid. Monitor for risk of fluid overload. Repeat chemistry, CBC is requested. Reviewed orthopedic note, discussed with orthopedic surgeon. She has been started on aspirin for DVT prophylaxis. Remove Aburto when mobilizing. Encourage incentive spirometer. Tylenol as needed for pain, IV morphine as needed for severe breakthrough pain. Pending PT evaluation, tentative discharge plan is to return home. (2) Essential hypertension: History of hypertension for which she takes amlodipine and chlorthalidone. Resume. Would resume cardiac diet when deemed appropriate. Plan Right calf/tibia pain: Reports pain in her right lower leg, difficult to get exact location, seems to have some tenderness posteriorly in the right calf. She feels it is less likely a cramp. When describing the pain localizes to anterior proximal third of the right tibia. Does report has had some pain there previously, versus possible surgical positioning. Discussed with her obtaining duplex ultrasound to assess for any DVT. I do not see any swelling, bruising, redness, nonfluctuating mass, or other abnormality on examination. HLD: Not on cholesterol medication. Follow-up with primary provider. GERD: Continue PPI PDMP PDMP Reviewed: Not Reviewed Consult Attestations Medical Necessity Statement: Continue postoperative care after right and High MDM includes described risk of complication, morbidity or mortality of management as documented Diagnoses S/P total hip arthroplasty Z96.649 Essential hypertension I10
--- NOTE | 2024-11-29 10:39 | USR_ITS ---
PROCEDURE INFORMATION: Exam: US Duplex Right Lower Extremity Veins, Limited Exam date and time: 11/29/2024 4:09 PM Age: 69 years old Clinical indication: Pain; Leg, lower; Right; Additional info: Tibia/calf pain TECHNIQUE: Imaging protocol: Real-time duplex ultrasound of the right extremity with 2-D castro scale, color Doppler flow and spectral waveform analysis including responses to compression and other maneuvers (when performed) with image documentation. Limited exam was focused on the right lower extremity veins. COMPARISON: CR XR knee RT 3V* [id number] 07/13/2024 1:33 PM FINDINGS: Right deep veins: Unremarkable. The common femoral, femoral, proximal profunda femoral and popliteal veins as well as the visualized deep veins of the lower leg. are patent without thrombus. Normal Doppler waveforms. Normal compressibility and/or augmentation response. Superficial veins: Greater saphenous vein at the saphenofemoral junction is patent without thrombus. Soft tissues: Unremarkable. US/[place] [id number] IMPRESSION: No evidence of deep vein thrombosis.
--- NOTE | 2024-11-29 10:53 | PC.NURSE ---
1039-transferred pt to room 261. Report to TOY ASSEMBLY SUPERVISOR and RN at bedside. Drainage on dressing marked. Daughter at bedside. Pt says pain easing up some.
--- NOTE | 2024-11-29 11:00 | ANE.PACU2 ---
Inpatient post-anesthesia follow up: Airway intact: Yes Vital signs: Temperature 97.4 F Pulse Rate 91 Respiratory Rate 18 Blood Pressure 107/67 Pulse Oximetry 93 Oxygen Delivery Me thod Room Air Oxygen Flow Rate Fraction of Inspir ed Oxygen Hydration adequate: Yes Nausea and vomiting: No Pain level: 1 Mental status: Baseline
[2024-11-29] MEDS: oxyCODONE-APAP 5-325 mg Tablet 1 TAB PO ×2 (11:51→15:34)
[2024-11-29] MEDS: chlorhexidine gluconate 0.12% Btl 473 mL 30 ML MUCOUS MEM ×3 (11:52→21:23)
--- NOTE | 2024-11-29 17:18 | PC.NURSE ---
Blaise, PT, states that pt blood pressure got to 58/46 while up walking, once laying down it increases to 109/65. Dr. Foy notified. 250ml bolus ordered. H&H ordered. BP medications placed on hold.
[2024-11-29] MEDS: mupirocin oint 22 gm 1 APPLIC NASAL (17:50)
[2024-11-29] MEDS: iron polysaccharide complex 150 mg Capsule PO (17:50)
[2024-11-29] MEDS: calcium carbonate 500 mg Chew Tablet 1000 MG PO (17:50)
[2024-11-29] MEDS: sennosides-docusate Tablet 2 TAB PO (17:50)
[2024-11-29] MEDS: sodium chloride 0.9% 250 ML IV (17:51)
[2024-11-29 18:11] LABS: Hematocrit 33.7 % (36-47)
[2024-11-30] VITALS: BP 100/64; PULSE 99; RESP 17; TEMP 37.1; O2SAT 93
[2024-11-30] MEDS: acetaminophen 500 mg Tablet 1000 MG PO ×2 (01:07→09:07)
[2024-11-30 05:41] LABS: Basophils % 0.2 %; Hematocrit 26.6 % (36-47); Lymphocytes # 2.5 10^3/uL (0.8-4.8); Lymphocytes % 11.2 %; Mean Corpuscular HGB Conc 32.7 g/dL (30-55); Mean Corpuscular Hemoglobin 27.7 pg (27-33); Mean Corpuscular Volume 84.7 fl (85-98); Mean Platelet Volume 11.2 fL (7.4-10.4); Monocytes # 3.2 10^3/uL (0.2-0.9); Monocytes % 14.2 %; Neutrophils # 16.41 10^3/uL (1.8-7.7); Neutrophils % 73.5 %; Nucleated Red Blood Cells % 0 %; Platelet Count 252 10^3/cmm (157-399); Red Blood Count 3.14 10^6/uL (3.85-5.65); Red Cell Distribution Width 14.1 % (12.1-15.1); White Blood Count 22.35 10^3/uL (3.29-11.43)
[2024-11-30 06:03] LABS: Anion Gap 16.4 (5-19); Blood Urea Nitrogen 13 mg/dL (8-23); Carbon Dioxide 22 mmol/L (22-29); Chloride 90 mmol/L (98-107); Creatinine Clr Calc Pharmacy 68.9618; Glucose 109 mg/dL (65-115); Osmolality Calculated 261 mOsm/kg (285-295); Potassium 3.4 mmol/L (3.5-5.1); Sodium 125 mmol/L (136-145)
[2024-11-30] MEDS: ceFAZolin 2,000 mg SDV 2000 MG IVP (06:10)
[2024-11-30 07:54] VITALS: BP 101/62; PULSE 98; RESP 18; TEMP 36.9; O2SAT 93
--- NOTE | 2024-11-30 08:07 | P.PN_ITS ---
Subjective 2 Subjective: She has been feeling tired, not very well overall. Denies any symptoms of shortness of breath, cough, has not had any nausea or vomiting, she is having some constipation. Denies urinary urgency or discomfort. Without other obvious signs of infection. Without any obvious external bleeding. Hemoglobin down to 8.7. She did get significantly orthostatic yesterday getting up with therapy. She is looking forward to trying physical therapy again today. Vitals/I&O/Wt Last Vital Signs Temp 98.5 F 11/30/24 07:54 Pulse 98 11/30/24 07:54 Resp 18 11/30/24 07:54 BP 101/62 11/30/24 07:54 Pulse Ox 93 11/30/24 07:54 O2 Del Method Room Air 11/30/24 07:54 11/29/24 11/30/24 11/30/24 22:59 06:59 14:59 Intake Total 370 / 1730 120 / 120 Output Total 1350 / 3150 100 / 3250 Balance -980 / -1420 -100 / -1520 120 / 120 Weight last 48 hrs Weight 97.522 kg Weight 90.718 kg Weight 90.718 kg Physical Exam 2 Const: COMMON NORMALS: patient oriented x3 and alert GENERAL APPEARANCE: c ooperative ORIENTATION/CONSCIOUSNESS: Yes awake HENMT: COMMON NORMALS: oropharynx normal Neck/C-Spine: COMMON NORMALS: no JVD Resp: COMMON NORMALS: normal respiratory effort and clear to auscultation bilaterally AUSCULTATION: clear to auscultation bilaterally Cardio: COMMON NORMALS: no JVD, regular rhythm, S1 normal heart sound present, S2 normal heart sound present and No murmurs present (Cardio) RHYTHM: regular rhythm HEART SOUNDS: S1 normal heart sound present and S2 normal heart sound present GI: COMMON NORMALS: Normal to inspection, nondistended, normoactive bowel sounds present, Soft to palpation and non-tender PALPATION: Yes Soft to palpation Extremity: COMMON NORMALS: no joint enlargement and no pedal edema N ARRATIVE EXTREMITY EXAM: Postoperative dressing right hip. No redness, swelling, mottling or other changes seen in right lower extremity. Neuro: COMMON NORMALS: patient oriented x3 and moves all extremities S ENSORIUM/ORIENTATION: Yes alert Skin: COMMON NORMALS: no rashes or lesions noted GENERAL SKIN EXAM: no rashes or lesions noted Urinary Catheter Management: Aburto: Cath Placed During This Visit: yes Reason for Continuing Indwelling Catheter: Required Immobilization for Trauma or Surgery or Anesthesia Urinary Catheter Date of Insertion: 11/29/24 Urinary Catheter Time of Insertion: 07:11 Data 11/30/24 04:33 11/30/24 04:33 A&P Assessment and plan (1) Acute anemia: Hemoglobin down to 8.7 on recheck today, from prior 14.4 baseline. She is feeling tired. Significantly orthostatic yesterday with physical therapy. Discussed with her. Blood pressure medications are not resumed due to this. Repeat hemoglobin is requested. Will recheck this afternoon, however, if remaining significantly orthostatic and/or there is further decrease, her body may need time to adjust to volume loss, in the case likely may still need to stay until tomorrow with additional reassessment in the morning as per discussion with her. She has not noticed melena or hematochezia. She is on aspirin DVT prophylaxis. Has been started on oral iron replacement. Will recheck hemoglobin this afternoon. Discussed additionally with PT to exercise caution on reevaluation today, reassess orthostatics. On review of CBC also noted leukocytosis 22.35. Possibly reactive secondary to surgery, acute anemia. Fall precautions (2) S/P total hip arthroplasty: With acute blood loss anemia as above. Significant orthostasis. Reassess blood counts. Consider transfusion if dropping below 7. Additional mobilization with physical therapy today, discussed with PT orthostatic precautions, reassessment of orthostatics. Continues with pain control including IV morphine for severe breakthrough pain. He is having some constipation. Adding MiraLAX as needed. IV fluid has been DC'd. Repeat chemistry, CBC is requested. Reviewed orthopedic note. She has been started on aspirin for DVT prophylaxis. Remove Aburto when mobilizing. Encouraged incentive spirometer. Tylenol as needed for pain, IV morphine as needed for severe breakthrough pain. (3) Essential hypertension: Hold antihypertensives with severe orthostasis. History of hypertension for which she takes amlodipine and chlorthalidone. (4) Leukocytosis: Up to 22.35. On review of systems without symptoms of new infection at this time. Possibly reactive secondary to surgery as well as acute blood loss anemia. She does report also some chronically elevated white counts ever since she had had lymphoma. She knows to let us know in case of any symptom changes. She has been working with incentive spirometer. Remove Aburto as soon as she is mobilizing. Plan Right calf/tibia pain: Reports pain in her right lower leg, difficult to get exact location, seems to have some tenderness posteriorly in the right calf. She feels it is less likely a cramp. When describing the pain localizes to anterior proximal third of the right tibia. Does report has had some pain there previously, versus possible surgical positioning. Discussed with her obtaining duplex ultrasound to assess for any DVT. I do not see any swelling, bruising, redness, nonfluctuating mass, or other abnormality on examination. HLD: Not on cholesterol medication. Follow-up with primary provider. GERD: Continue PPI PDMP PDMP Reviewed: Not Reviewed Attestations 2 Medical Necessity Statement*: Continue hospitalization for assessment management after right TRISTAN, acute blood loss anemia with severe orthostasis, in a lady with additional comorbidities as above. Coding Level of Care Code Acute Code for Chg Fwd Diagnoses Acute anemia D64.9 S/P total hip arthroplasty Z96.649 Essential hypertension I10 Leukocytosis D72.829
[2024-11-30] MEDS: sennosides-docusate Tablet 2 TAB PO ×2 (09:06→16:35)
[2024-11-30] MEDS: calcium carbonate 500 mg Chew Tablet 1000 MG PO ×2 (09:06→16:34)
[2024-11-30] MEDS: iron polysaccharide complex 150 mg Capsule PO ×2 (09:06→16:34)
[2024-11-30] MEDS: cholecalciferol (vitamin D3) 1,000 unit Tablet 1000 UNIT PO (09:06)
[2024-11-30] MEDS: pantoprazole DR 40 mg Tablet PO (09:06)
[2024-11-30] MEDS: aspirin 325 mg EC Tablet PO (09:06)
[2024-11-30] MEDS: multivitamin therapeutic Tablet 1 TAB PO (09:06)
[2024-11-30] MEDS: mupirocin oint 22 gm 1 APPLIC NASAL (09:07)
[2024-11-30] MEDS: chlorhexidine gluconate 0.12% Btl 473 mL 30 ML MUCOUS MEM (09:07)
[2024-11-30] MEDS: potassium chloride ER 20 mEq Tablet PO (09:12)
--- NOTE | 2024-11-30 10:02 | PC.CHAP ---
Pastoral Care Encounter/Spiritual Assessment Type of Contact [] Declined report analyst visit [] Patient/Family/Request visit [] Outpatient visit [] Follow-up visit [] Physician referral [] Code/Alert [x] Routine visit [] Staff referral [] Actively dying [] Patient sleeping [] Family support [] [] Out of room [] Palliative care [] [] Receiving care in room [] Pre-surgical visit [] Trauma [] Long length of stay [] ICU visit [] Other: Relational/Emotional Strength [] Patient feels connected with others/family/visitors/staff [] Distress [] Loneliness/isolation [] Abandonment Spirituality of Patient [x] Person of Bertha [] Attends Taoism of their Bertha [x] Believes in Prayer [] Reads Bible or Religion materials [] There are Spiritual issues to be addressed Tobacco Scrap Sifter Interventions [x] Prayer [x] Active listening [] Non-anxious presence [] Spiritual/emotional support [] Crisis/trauma care [] Spiritual counseling [] Bereavement support [] Provided bereavement packet [x] Provided Bible/devotional materials [] Provided toy/stuffed animal, coloring book to patient or family member [] Provided Communion [] Anointing/[place] [] Salvation [x] Completed spiritual assessment [] Other: Impact on Illness or Injury [] Angry [] Fearful [] Anxious [] Often cries [] Exhaustion [] Unable to work [] Unable to attend moravian [] Unable to walk/stand [] Unable to read [] Unable to drive [] Unable to eat/drink [] Unable to sleep [] Unable to be with family [] Patient intubated [] Other: Summary Time spent with patient 10 min
[2024-11-30 11:37] VITALS: BP 121/74; PULSE 95; RESP 19; TEMP 36.6; O2SAT 98
[2024-11-30 13:18] LABS: Basophils % 0.2 %; Eosinophils % 0.1 %; Hematocrit 26.8 % (36-47); Lymphocytes # 2.9 10^3/uL (0.8-4.8); Lymphocytes % 12.9 %; Mean Corpuscular HGB Conc 34.3 g/dL (30-55); Mean Corpuscular Volume 81.5 fl (85-98); Mean Platelet Volume 10.6 fL (7.4-10.4); Monocytes # 3.6 10^3/uL (0.2-0.9); Monocytes % 16.4 %; Neutrophils # 15.35 10^3/uL (1.8-7.7); Nucleated Red Blood Cells % 0 %; Platelet Count 221 10^3/cmm (157-399); Red Blood Count 3.29 10^6/uL (3.85-5.65); White Blood Count 22.24 10^3/uL (3.29-11.43)
[2024-11-30 15:53] VITALS: BP 127/70; PULSE 95; RESP 18; TEMP 36.5; O2SAT 99
--- NOTE | 2024-11-30 16:32 | P.DS_ITS ---
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 Surgeon: Jose Dewitt MD (2) Acute anemia: Status: Acute (3) Essential hypertension: Status: Chronic (4) Leukocytosis: Status: Acute Reason for Visit Reason for Visit: M16.11 Brief History: Airam is a 69-year-old white female presented to the orthopedic clinics with debilitating right hip pain. Is been referred in by her primary care for evaluation of osteoarthritic hip. After review of x-rays and clinical exam was felt patient was at end-stage degenerative joint disease of the right hip. She had failed all conservative measures. Therefore at this time she was offered a total hip arthroplasty. Patient was admitted observation status after undergoing routine right total hip arthroplasty. Hospital Course Hospital Course Patient is a 69-year-old, female patient, who is status post right total hip arthroplasty postoperative day 1. She has done quite well in her postoperative state via observation. Her hospital course has been well, while working with physical therapy. She is ambulating safely and therapy services felt that she is safe for discharge. Medically, she did have episodes of hypotension, for that because her postoperative pain medications were lowered and this resolved after 24 hours. The patient is ambulating without concern or issue today. Her blood pressure is now stable and within normal limits. She has done well with low doses of pain medications, alternating with [id number] Tylenol. We will continue this course in the interim. She will be discharged with home therapy and nursing services. Incision is clean and dry, no sign or symptom of infection. Postoperative dressing intact. Follow-up in our clinic in 2 weeks for postoperative visit. Physical Exam Const: COMMON NORMALS: no acute distress, average body habitus, patient oriented x3, no limitations, alert and well nourished GENERAL APPEARANCE: cooperative; not anxious and not combative ORIENTATION/CONSCIOUSNESS: Yes awake, Yes oriented to person, Yes oriented to place and Yes oriented to time HENMT: COMMON NORMALS: normocephalic and atraumatic HEAD & SCALP: normocephalic and atraumatic Resp: COMMON NORMALS: normal respiratory effort and No use of accessory muscles Cardio: OTHER: Denies shortness of breath, chest pain or discomfort. Extremity: RIGHT LOWER EXTREMITY: Yes hip joint Right hip: Yes inspection (Postoperative dressing in place. Clean and dry.), Yes palpation (Mild TTP incision site.), Yes ROM (Not directly assessed. Able to straight leg raise.) and Yes neurovascular exam (Sensation intact to light touch. Rapid cap refill.) and Yes lower leg Right lower leg: Yes special tests (No calf pain, swelling or erythema.) Right lower leg special tests: Jos's sign: Negative Neuro: COMMON NORMALS: patient oriented x3 SENSORIUM/ORIENTATION: Yes alert, Yes oriented to person, Yes oriented to place and Yes oriented to time Psych: ATTITUDE: Yes engaged Skin: COMMON NORMALS: no rashes or lesions noted, turgor normal and no jaundice GENERAL SKIN EXAM: no rashes or lesions noted and turgor normal Urinary Catheter Management: Aburto: Cath Placed During This Visit: yes Reason for Continuing Indwelling Catheter: Required Immobilization for Trauma or Surgery or Anesthesia Urinary Catheter Date of Insertion: 11/29/24 Urinary Catheter Time of Insertion: 07:11 Discharge Data Studies Completed and Pending Completed Studies During Hospitalization Category Date Time Status XR hip RT 1V wo/[place] pel [id number] Routine Exams 11/29/24 09:01 [place] [id number] Routine Ultrasound 11/29/24 10:39 Completed Pending at discharge Category Date Time Status Complete Blood Count w/Auto AM LABS Lab 12/01/24 04:00 Uncollected Complete Blood Count w/Auto AM LABS Lab 12/02/24 04:00 Uncollected Occult Blood Stool [Immunochemical Fecal OCB] Routine Lab 11/30/24 07:50 Uncollected Radiology Impressions Hip X-Ray 11/29/24 09:01 IMPRESSION: Total right hip arthroplasty without abnormality. Venous Duplex 11/29/24 10:39 IMPRESSION: No evidence of deep vein thrombosis. Laboratory Results WBC 22.24 10^3/uL (3.29-11.43) H 11/30/24 13:11 RBC 3.29 10^6/uL (3.85-5.65) L 11/30/24 13:11 Hgb 9.20 g/dL (11.27-16.99) L 11/30/24 13:11 Hct 26.8 % (36-47) L 11/30/24 13:11 MCV 81.5 fl (85-98) L 11/30/24 13:11 MCH 28.0 pg (27-33) 11/30/24 13:11 MCHC 34.3 g/dL (30-55) 11/30/24 13:11 RDW 14.0 % (12.1-15.1) 11/30/24 13:11 Plt Count 221 10^3/cmm (157-399) 11/30/24 13:11 MPV 10.6 fL (7.4-10.4) H 11/30/24 13:11 Neut % (Auto) 69.0 % 11/30/24 13:11 Lymph % (Auto) 12.9 % 11/30/24 13:11 Evangeline % (Auto) 16.4 % 11/30/24 13:11 Eos % (Auto) 0.1 % 11/30/24 13:11 Baso % (Auto) 0.2 % 11/30/24 13:11 Neut # (Auto) 15.35 10^3/uL (1.8-7.7) H 11/30/24 13:11 Lymph # (Auto) 2.9 10^3/uL (0.8-4.8) 11/30/24 13:11 Evangeline # (Auto) 3.6 10^3/uL (0.2-0.9) H 11/30/24 13:11 Eos # (Auto) 0.0 10^3/uL (0.0-0.8) 11/30/24 13:11 Baso # (Auto) 0.0 10^3/uL (0.0-0.1) 11/30/24 13:11 Nucleated RBC % (auto) 0 % 11/30/24 13:11 Nucleated RBCs # 0.0 /100WBC 11/30/24 13:11 Sodium 125 mmol/L (136-145) L 11/30/24 04:33 Potassium 3.4 mmol/L (3.5-5.1) L 11/30/24 04:33 Chloride 90 mmol/L (98-107) L 11/30/24 04:33 Carbon Dioxide 22 mmol/L (22-29) 11/30/24 04:33 Anion Gap 16.4 (5-19) 11/30/24 04:33 BUN 13 mg/dL (8-23) 11/30/24 04:33 Creatinine 0.6 mg/dL (0.5-0.9) 11/30/24 04:33 GFR Calculation Not Reportable 11/30/24 04:33 Glucose 109 mg/dL (65-115) 11/30/24 04:33 Calculated Osmolality 261 mOsm/kg (285-295) L 11/30/24 04:33 Calcium 9.0 mg/dL (8.5-10.5) 11/30/24 04:33 Vitals Last Vital Signs Temp 97.7 F 11/30/24 15:53 Pulse 95 11/30/24 15:53 Resp 18 11/30/24 15:53 BP 127/70 11/30/24 15:53 Pulse Ox 99 11/30/24 15:53 O2 Del Method Room Air 11/30/24 15:53 Discharge Plan Discharge Patient Disposition: Home Health Service Condition: Stable Prescriptions: New hydrocodone-acetaminophen 7.5-325 mg tablet 1 tab PO Q6H PRN (Reason: pain) Qty: 15 0RF aspirin 325 mg Tablet,Delayed Release (Dr/Ec) 325 mg PO DAILY Qty: 60 0RF Continued fluoride (sodium) [Clinpro 5000] 1.1 % paste 1 applic dental DAILY neomycin-polymyxin B-dexameth 3.5mg/mL-10,000 unit/mL-0.1 % drops,suspension 1 drp ophthalmic (eye) Q12H omeprazole 20 mg capsule,delayed release(DR/EC) 20 mg PO QAM Qty: 90 1RF (DME) Knee high compression stockings See Rx Instructions .Route .MEDSUPPLY Qty: 2 0RF Rx Instructions: Please issue 2 pair, open toe, knee high compression stockings with 10-20mmHg pressure. multivitamin Tablet 1 tab PO DAILY cholecalciferol (vitamin D3) 10 mcg (400 unit) capsule 10 mcg PO DAILY zinc acetate 50 mg (zinc) capsule 50 mg PO DAILY Vitamin C 100 mg tablet 100 mg PO DAILY omega-3 fatty acids 500 mg capsule 500 mg PO DAILY amlodipine 10 mg tablet 10 mg PO DAILY Qty: 90 1RF Discontinued chlorthalidone 25 mg tablet 25 mg PO DAILY Qty: 90 1RF Discharge Orders: Discharge Order (Routine); Ordered 11/30/24 Ordered By: Bony Kevin Referrals: Jose Will MD [Physician, Orthopedics] - 12/19/24 10:15 am Sarah Webster MD [Primary Care Provider, Family Practice] - 12/26/24 2:45 pm Discharge Diet: Regular Discharge Activity: Limit activity as instructed and As per PT/OT instructions Patient Instructions: Potassium Content of Foods List (GEN), Hyponatremia (GEN), Acute Wound Care (DC), Hypotension (GEN), Anemia (GEN), Opioid Safety, Post Anesthesia Care Activity Restrictions/Additional Instructions: Please follow-up with your primary doctor to reassess postoperative anemia. As discussed, please maintain strict orthostatic hypotension precautions, rise slowly from laying to sitting and sitting to standing. In case you become lightheaded while standing or walking, sit down or lie down immediately. Do not fight the symptoms to avoid risk of fainting, fall and injury. Please hold your blood pressure medications for now, discontinue hydrochlorothiazide, hold amlodipine until your primary doctor resumes it. Please have your primary doctor also follow-up elevation of white blood cell count. As discussed in case you develop any symptoms of infection, seek medical attention immediately. Follow-up with your primary provider regarding some chronic pain in the right lower extremity. Venous duplex ultrasound was negative for blood clots in the right leg. Please have a primary doctor follow-up your sodium level due to decreased sodium level, 125. Please discontinue chlorthalidone at current time which may lower your sodium level. Do not limit sodium intake in your diet. Please include potassium rich foods in your diet due to mildly decreased potassium level for which you received replacement in the hospital. Please have your primary doctor follow-up your potassium level. Discharge Attestations Time Spent in Discharge Care*: greater than 30 min Quality Metrics Clinical Quality Measures [ No reported AMI, CVA or VTE this stay] Coding Level of Care Code Acute Code for Chg Fwd Diagnoses Status post total replacement of right hip Z96.641 Laterality: right Acute anemia D64.9 Essential hypertension I10 Leukocytosis D72.829
[2024-11-30] MEDS: oxyCODONE-APAP 5-325 mg Tablet 1 TAB PO (16:35)
== END 2024-11-30 17:20 | disposition home health service (06) ==
LOC: MEDSURG 10:36
PROVIDERS: Internal Medicine; Admitting Provider Orthopaedic Surgery; PCP Family Medicine; Visit Provider Orthopaedic Surgery
PROC: (CPT 27130; principal; 2024-11-29 07:00)
DX: M16.11 Unilateral primary osteoarthritis, right hip (principal); D64.9 Anemia, unspecified; I10 Essential (primary) hypertension; D72.829 Elevated white blood cell count, unspecified; K21.9 Gastro-esophageal reflux disease without esophagitis; I95.81 Postprocedural hypotension; E78.00 Pure hypercholesterolemia, unspecified; Z87.891 Personal history of nicotine dependence; C85.10 Unspecified B-cell lymphoma, unspecified site; M79.661 Pain in right lower leg
CPT/HCPCS: 27130; 36415; 51702; 73501; 80048; 85014; 85018; 85025; 93005; 93971; 97110; 97116; 97161; 97166; 97530; C1713; C1776; G0378; J0690; J1100; J1171; J1885; J2250; J2405; J2704; J3010; J3490; J7030; J7050; J9999; P9045

== ENCOUNTER → 2024-12-11 15:30 | Outpatient (BNVA) | payer MEDICARE, MEDICAID, SELFPAY | PROVIDERS: PCP Family Medicine; Visit Provider Family Medicine | DX: D62 Acute posthemorrhagic anemia (principal); E87.6 Hypokalemia; E87.1 Hypo-osmolality and hyponatremia; R60.0 Localized edema; R79.89 Other specified abnormal findings of blood chemistry; C85.10 Unspecified B-cell lymphoma, unspecified site; I10 Essential (primary) hypertension | CPT/HCPCS: 80048; 83540; 84439; 84443; 84481; 85025 ==

== ENCOUNTER → 2024-12-19 10:25 | Outpatient (BNVA) | payer MEDICARE, MEDICAID, SELFPAY | PROVIDERS: PCP Family Medicine; Visit Provider Orthopaedic Surgery | DX: Z98.890 Other specified postprocedural states (principal); Z96.641 Presence of right artificial hip joint | CPT/HCPCS: 73502; 99024 ==

== ENCOUNTER 2025-01-18 13:51 | Outpatient (CLI) | payer MEDICARE, MEDICAID, SELFPAY ==
--- NOTE | 2025-01-18 14:00 | XR_ITS ---
WS: [id number] DEXA (DUAL ENERGY X-RAY ABSORPTIOMETRY) Bone mineral density was performed using a [employer] machine. HISTORY: postmenopausal COMPARISON: None available. Lumbar spine BMD (L1-L4): 1.066 g/cm2 T score: -1.0 Z score: -0.1 Left forearm BMD: 0.690 g/cm2. T score: -2.1 Z score: -0.2 XR/XR DEXA axial skeleton* 59602 IMPRESSION: OSTEOPENIA based upon the WHO classification for females.
== END 2025-01-18 13:52 | disposition home or self-care (01) ==
LOC: RAD 13:52
PROVIDERS: PCP Family Medicine; Visit Provider Family Medicine
DX: Z78.0 Asymptomatic menopausal state (principal); M85.80 Other specified disorders of bone density and structure, unspecified site
CPT/HCPCS: 77080

== ENCOUNTER 2025-01-29 12:38 | Outpatient (CLI) | payer MEDICARE, MEDICAID, SELFPAY ==
[2025-01-29 14:17] LABS: Calcium 10.0 mg/dL (8.5-10.5)
== END 2025-01-29 12:39 | disposition home or self-care (01) ==
LOC: LAB 12:38
PROVIDERS: PCP Family Medicine; Visit Provider Family Medicine
DX: M85.80 Other specified disorders of bone density and structure, unspecified site (principal); Z78.0 Asymptomatic menopausal state
CPT/HCPCS: 36415; 82306; 82310; 83970

== ENCOUNTER → 2025-03-05 08:12 | Outpatient (BNVA) | payer MEDICARE, MEDICAID, SELFPAY | PROVIDERS: PCP Family Medicine; Visit Provider Orthopaedic Surgery | DX: Z96.641 Presence of right artificial hip joint (principal) | CPT/HCPCS: 73502; 99024 ==

== ENCOUNTER 2025-03-27 09:28 | Outpatient (RCR) | payer MEDICARE, SELFPAY | END 2025-04-23 12:50 | disposition home or self-care (01) | LOC: SPT 09:28 | PROVIDERS: PCP Family Medicine; Visit Provider Orthopaedic Surgery | DX: Z47.1 Aftercare following joint replacement surgery (principal); Z96.641 Presence of right artificial hip joint | CPT/HCPCS: 97110; 97161; 97530 ==

== ENCOUNTER → 2025-04-16 07:59 | Outpatient (BNVA) | payer MEDICARE, MEDICAID, SELFPAY | PROVIDERS: PCP Family Medicine; Visit Provider Orthopaedic Surgery | DX: Z47.89 Encounter for other orthopedic aftercare (principal); Z96.641 Presence of right artificial hip joint | CPT/HCPCS: 73502; 99213 ==

== ENCOUNTER → 2025-07-06 09:43 | Outpatient (BNVA) | payer MEDICARE, MEDICAID, SELFPAY | PROVIDERS: PCP Family Medicine; Visit Provider Orthopaedic Surgery | DX: Z96.641 Presence of right artificial hip joint (principal) | CPT/HCPCS: 73502; 99213 ==

== ENCOUNTER 2025-07-09 07:47 | Outpatient (CLI) | payer MEDICARE, MEDICAID, SELFPAY ==
[2025-07-09 09:12] LABS: Hematocrit 44.0 % (36-47); Hemoglobin 14.40 g/dL (11.27-16.99); Mean Corpuscular HGB Conc 32.7 g/dL (30-55); Mean Corpuscular Hemoglobin 27.9 pg (27-33); Mean Corpuscular Volume 85.1 fl (85-98); Nucleated Red Blood Cells % 0 %; Platelet Count 342 10^3/cmm (157-399); Red Blood Count 5.17 10^6/uL (3.85-5.65); White Blood Count 10.03 10^3/uL (3.29-11.43)
[2025-07-09 09:49] LABS: Alanine Aminotransferase 19 U/L (0-33); Albumin Level 4.6 g/dL (3.5-5.2); Alkaline Phosphatase 102 U/L (35-105); Anion Gap 13.8 (5-19); Aspartate Amino Transferase 21 U/L (0-32); Blood Urea Nitrogen 16 mg/dL (8-23); Calcium 10.2 mg/dL (8.5-10.5); Carbon Dioxide 27 mmol/L (22-29); Chloride 102 mmol/L (98-107); Cholesterol 298 mg/dL (0-200); Free T4 Free Thyroxine 1.03 ng/dL (0.82-1.77); Globulin 2.6 g/dL (1.3-4.6); Glucose 92 mg/dL (65-115); HDL Cholesterol 54 mg/dL (60-100); Osmolality Calculated 289 mOsm/kg (285-295); Potassium 3.8 mmol/L (3.5-5.1); Sodium 139 mmol/L (136-145); Thyroid Stimulating Hormone 4.52 uIU/mL (0.27-4.20); Total Protein 7.2 g/dL (6.6-8.7); Triglycerides 159 mg/dL (0-150)
== END 2025-07-09 07:48 | disposition home or self-care (01) ==
PROVIDERS: PCP Family Medicine; Visit Provider Family Medicine
DX: E78.00 Pure hypercholesterolemia, unspecified (principal); I10 Essential (primary) hypertension; R79.89 Other specified abnormal findings of blood chemistry; K21.9 Gastro-esophageal reflux disease without esophagitis; Z11.59 Encounter for screening for other viral diseases; R60.0 Localized edema
CPT/HCPCS: 36415; 80053; 80061; 84439; 84443; 85025; 86803